=== PATIENT | male | born 1995 | race Two or more races ===

== ENCOUNTER 2024-01-13 19:20 | Inpatient (IN) | payer BC, MEDICAID ==
[~2024-01-13] VITALS: Ht 170.2 cm; Wt 119.0 kg
[2024-01-13 19:59] LABS: Basophils # (auto) 0 10 ^3/uL (0-0.2); Basophils % (auto) 0.2 % (0.0-2.0); Eosinophils # (auto) 0.1 10 ^3/uL (0-0.8); Eosinophils % (auto) 0.4 % (0.0-7.0); Hematocrit 45.2 % (41.0-53.0); Hemoglobin 15.1 g/dL (13.5-17.5); Lymphocytes # (auto) 0.7 10 ^3/uL (0.4-5.4); Lymphocytes % (auto) 4.8 % (10.0-50.0); Mean Corpuscular Hemoglobin 28.3 pg (28.0-32.0); Mean Corpuscular Hgb Conc. 33.4 g/dL (32.0-36.0); Mean Corpuscular Volume 84.6 fL (80.0-100.0); Monocytes # (auto) 0.7 10 ^3/uL (0-1.3); Monocytes % (auto) 5.1 % (0.0-12.0); Neutrophils # (auto) 12.7 10 ^3/uL (1.6-8.6); Neutrophils % (auto) 89.5 % (37.0-80.0); Red Blood Cells 5.35 10^6/uL (4.5-5.90); Red Cell Distribution Width 14.2 % (11.8-14.3); White Blood Cell 14.1 10^3/uL (4.4-10.8)
[2024-01-13 20:07] LABS: Chloride 106 mmol/L (98-107); Potassium 3.6 mmol/L (3.5-5.1); Sodium 139 mmol/L (136-145)
[2024-01-13 20:08] LABS: Anion Gap 9 (5-15); Carbon Dioxide 24 mmol/L (20-30)
[2024-01-13 20:09] LABS: Calcium 10.3 mg/dL (8.7-10.4)
[2024-01-13 20:13] LABS: Glucose 132 mg/dL (74-106)
[2024-01-13 20:14] LABS: BUN/Creatinine Ratio 9.5 (10.0-20.0); Blood Urea Nitrogen 8 mg/dL (9-23)
[2024-01-13 20:54] LABS: Amphetamine Screen, Urine Neg (NEGATIVE); Barbiturate Scree,Urine Neg (NEGATIVE); Benzodiazephine Screen, Urine Neg (NEGATIVE); Cocaine Screen, Urine Neg (NEGATIVE)
[2024-01-13 20:55] LABS: Cannabinoid Screen, Urine Pos (NEGATIVE); Opiate Scree,Urine Neg (NEGATIVE); Phencyclidine Screen, Urine Neg (NEGATIVE)
[2024-01-13 21:00] VITALS: PULSE 107; RESP 16; O2SAT 94
[2024-01-13] MEDS: SODIUM CHLORIDE 0.9% 1,000 ML IVB ONE (21:07)
[2024-01-13] MEDS: ACETAMINOPHEN 325 MG TAB PO ONE (21:10)
[2024-01-13 21:11] LABS: Urine Bacteria None Seen /hpf (None Seen)
[2024-01-13] MEDS: PIPERACILLIN-TAZOB 3.375GM 100 ML IV ONE (21:14)
[2024-01-13] MEDS: ONDANSETRON HCL 4 MG/2 ML VIAL IV ONE (21:14)
[2024-01-13 21:32] LABS: Urine Blood Negative /uL (Negative); Urine Clarity Clear (Clear); Urine Color Yellow (Yellow); Urine Protein, UAD TRACE (Negative); Urine Specific Gravity 1.023 (1.001-1.035); Urine Urobilinogen Normal (Negative); Urine WBC <1 /hpf (0 - 3)
[2024-01-13] MEDS: metroNIDAZOLE 500MG/100ML 100 ML IV ONE (21:41)
[2024-01-13] MEDS: SODIUM CHLORIDE 0.9% 1,000 ML IV ONE (21:42)
[2024-01-13] MEDS ORDERED: HYDROcodone-ACET 5/325MG TAB PO PRN (21:45)
[2024-01-13] MEDS ORDERED: ALBUTEROL SULF 2.5 MG/0.5ML(0.5%) NEB SOLN NEB PRN (21:45)
[2024-01-13] MEDS ORDERED: ACETAMINOPHEN 325 MG TAB PO PRN (21:45)
[2024-01-13] MEDS ORDERED: DOCUSATE SOD 100 MG CAP PO PRN (21:45)
[2024-01-13] MEDS ORDERED: MORPHINE SULFATE INJ 2 MG/ml SYRG IV PRN ×2 (21:45→22:30)
[2024-01-13] MEDS ORDERED: ONDANSETRON HCL 4 MG/2 ML VIAL IV PRN (21:45)
[2024-01-13] MEDS: SODIUM CHLORIDE 0.9% 1,000 ML IV SCH (21:49)
[2024-01-13 22:20] VITALS: PULSE 102; RESP 18; O2SAT 93
[2024-01-13 22:30] VITALS: PULSE 103; RESP 18; O2SAT 98
[2024-01-13] MEDS ORDERED: NITROGLYCERIN 0.4 MG SL TAB SL PRN (22:30)
[2024-01-13] MEDS: methylPREDNISolone SOD SUCC 125 MG/2 ML VL IM ONE (23:46)
[2024-01-14] VITALS (23 sets, daily range): BP systolic 104–147; BP diastolic 48–78; PULSE 78–115; RESP 17–21; TEMP 98–98.3; O2SAT 91–100
[2024-01-14] MEDS: IPRATROPIUM BROM 0.5 MG/2.5ML INH SOL NEB SCH (02:53)
[2024-01-14] MEDS: ALBUTEROL SULF 2.5 MG/0.5ML(0.5%) NEB SOLN NEB PRN (02:53)
[2024-01-14] MEDS: methylPREDNISolone SOD SUCC 40 MG/ML VL IV SCH (05:33)
[2024-01-14 08:32] LABS: Basophils # (auto) 0 10 ^3/uL (0-0.2); Eosinophils # (auto) 0 10 ^3/uL (0-0.8); Eosinophils % (auto) 0.1 % (0.0-7.0); Hematocrit 43.1 % (41.0-53.0); Hemoglobin 14.5 g/dL (13.5-17.5); Lymphocytes # (auto) 0.4 10 ^3/uL (0.4-5.4); Lymphocytes % (auto) 3.8 % (10.0-50.0); Mean Corpuscular Hemoglobin 28.8 pg (28.0-32.0); Mean Corpuscular Hgb Conc. 33.7 g/dL (32.0-36.0); Mean Corpuscular Volume 85.4 fL (80.0-100.0); Monocytes # (auto) 0.1 10 ^3/uL (0-1.3); Neutrophils # (auto) 10.2 10 ^3/uL (1.6-8.6); Neutrophils % (auto) 95.1 % (37.0-80.0); Red Blood Cells 5.04 10^6/uL (4.5-5.90); Red Cell Distribution Width 14.4 % (11.8-14.3); White Blood Cell 10.7 10^3/uL (4.4-10.8)
[2024-01-14] MEDS: PANTOPRAZOLE 40 MG/10 ML VIAL INJ IV SCH (08:51)
[2024-01-14] MEDS: cefTRIAXone 1GM/50ML D5W 50 ML IV SCH (08:51)
[2024-01-14 08:57] LABS: Alanine Aminotransferase 39 U/L (7-40); Albumin 4.6 g/dL (3.2-4.8); Alkaline Phosphatase 52 U/L (46-116); Anion Gap 7 (5-15); Aspartate Aminotransferase 11 U/L (13-40); BUN/Creatinine Ratio 13.9 (10.0-20.0); Blood Urea Nitrogen 10 mg/dL (9-23); Calcium 9.5 mg/dL (8.5-10.1); Carbon Dioxide 24 mmol/L (20-30); Chloride 108 mmol/L (98-107); Glucose 159 mg/dL (74-106); Sodium 139 mmol/L (136-145)
[2024-01-14 08:58] LABS: Bilirubin, Total 0.7 mg/dL (0.2-1.0); Total Protein 6.9 g/dL (5.7-8.2)
[2024-01-14] MEDS: AZITHROMYCIN 500MG/ 250ML 250 ML IV ONE (13:49)
[2024-01-14 15:09] LABS: Lipase 32 U/L (12-53)
[2024-01-14 15:21] LABS: Blood Alcohol < 3.0 mg/dL (<10)
[2024-01-15] VITALS (19 sets, daily range): BP systolic 99–126; BP diastolic 58–79; PULSE 70–106; RESP 16–20; TEMP 97.3–98.2; O2SAT 91–100
[2024-01-15] MEDS: AZITHROMYCIN 500MG/ 250ML 250 ML IV SCH (10:06)
[2024-01-16] VITALS (8 sets, daily range): BP systolic 128–131; BP diastolic 68–78; PULSE 63–97; RESP 18–20; TEMP 97.3–97.7; O2SAT 94–100
[2024-01-16] MEDS ORDERED: METH4PAK PO (10:09)
[2024-01-16] MEDS ORDERED: AZIT500T66 PO (10:09)
== END 2024-01-16 14:30 | disposition home or self-care (01) | DRG 871 ==
LOC: ER 19:20 → TELE 22:20 → TELE-E-ADS 22:20
PROVIDERS: ADMIT Nurse Practitioner Family; ATTEND Family Medicine
DX: A41.9 Sepsis, unspecified organism (principal); J18.9 Pneumonia, unspecified organism; J96.01 Acute respiratory failure with hypoxia; J45.901 Unspecified asthma with (acute) exacerbation; K52.9 Noninfective gastroenteritis and colitis, unspecified; R73.9 Hyperglycemia, unspecified; E86.0 Dehydration; K82.8 Other specified diseases of gallbladder; Z79.899 Other long term (current) drug therapy
CPT/HCPCS: 36415; 71045; 74176; 76705; 80048; 80053; 80307; 80320; 81001; 83036; 83605; 83690; 85025; 87040; 94640; 96365; 96366; 96372; G0378; J2405; J2470; J2543; J3490

== ENCOUNTER 2024-07-08 22:34 | Emergency (ER) | payer BC ==
[~2024-07-08] VITALS: Ht 170.2 cm; Wt 113.5 kg
[~2024-07-08 22:34] MED LIST: AZIT500T66 PO; METH4PAK PO
--- NOTE | 2024-07-08 22:41 | ED.PDOC ---
History of Present Illness Chief Complaint: Shortness of Breath Comments 3 days of nasal congestion. one day of sob, wheezes. no fever. has been using his inhaler Time Seen by MD: 22:37 Primary Care Provider: NONE Reviewed Notes: Nurses Notes, Medications Allergies: Coded Allergies: NO KNOWN ALLERGIES (Unverified , 02/01/16) Home Meds Active Scripts Methylprednisolone (Medrol Dosepak) 4 Mg Aayush, 4 MG PO UD, #21 TAB UAD Prov:NADJA BOSWELL MD 01/16/24 Azithromycin (Azithromycin) 500 Mg Tab, 1 TAB PO DAILY, #10 TAB Prov:NADJA BOSWELL MD 01/16/24 Information Source: Patient Mode of Arrival: Ambulatory Severity: Mild Timing: Days Duration: Since onset Past Medical History PAST MEDICAL HISTORY: Asthma Surgical History: Denies all surgeries Family History Family History: Unknown Social History Smoker: Non-Smoker, Quit Less Than 1 Year Alcohol: Denies ETOH Use Drugs: Marijuana Lives In: Home Constitutional: denies: chills, diaphoresis, fatigue, fever, malaise, sweats, weakness, others EENTM: reports: nasal discharge, nose congestion; denies: blurred vision, double vision, ear bleeding, ear discharge, ear drainage, ear pain, ear ringing, eye pain, eye redness, hearing loss, mouth pain, mouth swelling, nose bleeding, nose pain, photophobia, tearing, throat pain, throat swelling, voice changes, others Respiratory: reports: shortness of breath, wheezing; denies: cough, hemoptysis, orthopnea, SOB at rest, SOB with excertion, stridor, others Cardiovascular: denies: chest pain, dizzy spells, diaphoresis, Dyspnea on exertion, edema, irregular heart beat, left arm pain, lightheadedness, palpitations, PND, syncope, others Gastrointestinal: denies: abdomen distended, abdominal pain, blood streaked bowels, constipated, diarrhea, dysphagia, difficulty swallowing, hematemesis, melena, nausea, poor appetite, poor fluid intake, rectal bleeding, rectal pain, vomiting, others Genitourinary: denies: burning, dysuria, flank pain, frequency, hematuria, incontinence, penile discharge, penile sore, pain, testicle pain, testicle swelling, urgency, others Neurological: denies: dizziness, fainting, headache, left sided numbness, left sided weakness, numbness, paresthesia, pre-existing deficit, right sided nu mbness, right sided weakness, seizure, speech problems, tingling, tremors, weakness, others Musculoskeletal: denies: back pain, gout, joint pain, joint swelling, muscle pain, muscle stiffness, neck pain, others Integumetry: denies: bruises, change in color, change in hair/nails, dryness, laceration, lesions, lumps, rash, wounds, others Allergic/Immunocompromised: denies: Difficulty Healing, Frequent Infections, Hives, Itching, others Hematologic/Lymphatic: denies: anemia, blood clots, easy bleeding, easy bruising, swollen glands, others Endocrine: denies: excessive hunger, excessive sweating, excessive thirst, excessive urination, flushing, intolerance to cold, intolerance to heat, unexplained weight gain, unexplained weight loss, others Psychiatric: denies: anxiety, bipolar disorder, depression, hopeless, panic disorder, schizophrenia, sleepless, suicidal, others Physical Exam General Appearance: No Apparent Distress, Obese HEENT: Normal ENT Inspection, Pharynx Normal, TMs Normal, Other (clear nasal discharge) Neck: Full Range of Motion, Non-Tender, Normal, Normal Inspection Respiratory: Chest Non-Tender, No Accessory Muscle Use, No Respiratory Distress, Normal Breath Sounds, Wheezing Cardiovascular: No Edema, No JVD, No Murmur, No Gallop, Normal Peripheral Pul ses, Regular Rate/Rhythm Breast Exam: Deferred Gastrointestinal: No Organomegaly, Non Tender, No Pulsatile Mass, Normal Bowel Sounds, Soft Genitalia: Deferred Pelvic: Deferred Rectal: Deferred Extremities: No calf tenderness, Normal capillary refill, Normal inspection, Normal range of motion, Non-tender, No pedal edema Musculoskeletal : Apperance: Normal Neurologic: Alert, irrigation installation specialist II-XII nml as Tested, No Motor Deficits, Normal Affect, Normal Mood, No Sensory Deficits Cerebellar Function: Normal Reflexes: Normal Skin: Dry, Normal Color, Warm Lymphatic: No Adenopathy Was a procedure done? Was a procedure done?: No Differential Dx Considerations may include: asthma, uri, pneumonia, ptx, pleural effusion X-Ray, Labs, Meds, VS Vital Signs Date Time Temp Pulse Resp B/P (MAP) Pulse Ox O2 Delivery O2 Flow Rate FiO2 07/08/24 23:29 98.9 87 19 141/65 (90) 95 98.9 07/08/24 23:29 87 19 95 Room Air 07/08/24 23:12 18 94 Room Air* 0 21 07/08/24 22:42 98.8 101 18 136/72 (93) 94 Current Medications Medications (Trade) Dose Ordered Sig/Martell Route Start Time Stop Time Status Last Admin Albuterol (Ventolin Medneb) 5 mg ONCE ONCE NEB 07/08/24 22:45 07/08/24 22:56 DC 07/08/24 23:13 Dexamethasone Sodium Phosphate (Decadron Injection) 10 mg ONCE ONCE IM 07/08/24 23:30 07/08/24 23:31 DC 07/08/24 23:24 Time of 1ST Reevaluation: 23:36 Reevaluation 1ST: Improved Patient Education/Counseling: Diagnosis, Treatment, Prognosis, Need For Follow Up Family Education/Counseling: No Family Present Departure 1 Departure Time of Disposition: 23:36 Impression: Primary Impression: Viral syndrome Additional Impression: Asthma exacerbation Qualified Codes: J45.21 - Mild intermittent asthma with (acute) exacerbation Disposition: 01 HOME / SELF CARE / HOMELESS Condition: Good e-Prescriptions Loratadine & Pseudoephedrine (Claritin-D 24 Hour 10-240 mg) 1 Tab Tab 1 TAB PO DAILY for 10 Days, #10 TAB Prov: GALLO UMAÑA MD 07/08/24 Mometasone Furoate (Nasal) (Nasonex 24Hr) 50 Mcg/Act Spr 50 MCG NA BID, #1 SPRAY Prov: GALLO UMAÑA MD 07/08/24 Prednisone (Prednisone) 20 Mg Tab 20 MG PO DAILY for 5 Days, #5 TAB Prov: GALLO UMAÑA MD 07/08/24 Ipratropium-Albuterol (COMBIVENT RESPIMAT) Respimat Aer 1 APPLIC IN Q4HP PRN, #1 AER Prov: GALLO UMAÑA MD 07/08/24 Discharged With: Self Critical Care Note Critical Care Time?: No Stability Stability form required: GALLO Jorgensen MD Jul 08, 2024 22:41
--- NOTE | 2024-07-08 23:10 | DVH ---
CHEST RADIOGRAPH Indication: sob Technique: Single frontal view of the chest was obtained Comparison: XY CHEST XRAY 1 VIEW on DOS: 01/14/24 FINDINGS: Lines and Tubes: None Lungs: No focal consolidation. Pleura: No effusion. No pneumothorax. Cardiomediastinal contours: Unremarkable Bones: No acute osseous abnormality. IMPRESSION: 1. No acute cardiopulmonary disease.
[2024-07-08] MEDS: ALBUTEROL SULF 2.5 MG/0.5ML(0.5%) NEB SOLN NEB ONE (23:13)
[2024-07-08] MEDS: ALBUTEROL SULF 2.5 MG/0.5ML(0.5%) NEB SOLN ONE (23:20)
[2024-07-08] MEDS: DexAMETHasone 0.5MG/5ML ORAL ELIX PO ONE (23:20)
[2024-07-08] MEDS: DexAMETHasone SOD PHOS 10MG/1ML VIAL INJ IM ONE (23:24)
[2024-07-08 23:29] VITALS: BP 141/65; PULSE 87; RESP 19; TEMP 98.9; O2SAT 95
[2024-07-08] MEDS ORDERED: PRED20TA2 PO (23:38)
[2024-07-08] MEDS ORDERED: IPRAAER6 IN (23:38)
[2024-07-08] MEDS ORDERED: MOME50SP11 (23:39)
[2024-07-08] MEDS ORDERED: LORA-1130 PO (23:39)
== END 2024-07-08 23:49 | disposition home or self-care (01) ==
LOC: ER 22:34
DX: B34.9 Viral infection, unspecified (principal); J45.901 Unspecified asthma with (acute) exacerbation; Z79.899 Other long term (current) drug therapy
CPT/HCPCS: 71045; 94640; 96372; 99283; J1100